=== PATIENT | male | born 1995 | race Caucasian/White ===

== ENCOUNTER 2017-03-19 20:05 | Emergency (ER) | payer OTHER ==
[2017-03-19 20:11] VITALS: BP 144/93; PULSE 76; RESP 20; TEMP 98.8; O2SAT 95
[2017-03-19] MEDS ORDERED: IBUPROFEN 800 MG TAB PO ONE (20:45)
--- NOTE | 2017-03-19 20:49 | EDPHY ---
H & P Stated Complaint: left ankle injury Time Seen by Provider: 03/19/17 20:46 HPI/ROS: HPI: This is a 21-year-old male presents with Chief Complaint: Left ankle injury Location: Left lateral ankle Quality: Injury Duration: 3-5 hours Signs and Symptoms: No bleeding, no radiation, no numbness, no weakness, no tingling, no incontinence, no decreased range of motion, + swelling, + pain Timing: Acute Severity: Moderate Context: Patient reports that he was wearing shoes and walking on the edge of a curb when he accidentally slipped and X reverted his left ankle. He felt immediate pain and felt a popping sensation. He was unable to bear weight secondary to the pain. He has not tried any [id number] medications nor has he applied ice. He denies paresthesias, skin color. Does report mild-to- moderate swelling. Has not had no prior injuries to the ankle before. He reports that the injury was accidental in nature because he tripped and lost his balance. Modifying Factors: None Comment: ROS: see HPI Constitutional: No fever, no chills, no weight loss Eyes: No blurred vision Respiratory: No shortness of breath, no cough Cardiovascular: No chest pain Gastrointestinal: No nausea, no vomiting no diarrhea Genitourinary: No dysuria Extremities: No myalgias Neurologic: No weakness, no numbness Skin: No rashes Hematologic: No bruising, no bleeding MEDICAL/SURGICAL/SOCIAL HISTORY: Medical history: Generally healthy. Does not take any regular medications. Surgical history: Denies Social history: Local college student CONSTITUTIONAL: Young adult white male, polite cooperative, awake and alert, no obvious distress HEENT: Atraumatic and normocephalic, PERRL, EOMI. Tympanic membranes clear. Oropharynx clear, no exudate and moist pink mucosa. Airway patent. No lymphadenopathy. No meningismus. Cardiovascular: Normal S1/S2, regular rate, regular rhythm, without murmur rub or gallop. PULMONARY/CHEST: Symmetrical and nontender. Clear to auscultation bilaterally. Good air movement. No accessory muscle usage. ABDOMEN: Soft, nondistended, nontender, no rebound, no guarding, no peritoneal signs, no masses or organomegaly. No CVAT. EXTREMITIES: 2/2 DP and PT pulses, strength 5/5, LEFT Ankle; Plantar flexion to 50, dorsiflexion to 20. Foot inversion to 35 degree. Mild tenderness Anterior talofibular ligament. Mild tenderness Calcaneofibular ligament, no tenderness posterior talofibular ligament, no tenderness posterior inferior tibiofibular ligament Achilles tendon intact. no deformities, no clubbing, no cyanosis or edema. NEUROLOGICAL: no focal neuro deficits. GCS 15. SKIN: Warm and dry, no erythema. no rash. Good capillary refill. Source: Patient Exam Limitations: No limitations - Personal History Current Tetanus Diphtheria and Acellular Pertussis (TDAP): Yes - Medical/Surgical History Hx Asthma: No Hx Chronic Respiratory Disease: No Hx Diabetes: No Hx Cardiac Disease: No Hx Renal Disease: No Hx Cirrhosis: No Hx Alcoholism: No Hx HIV/AIDS: No Hx Splenectomy or Spleen Trauma: No - Social History Smoking Status: Never smoked Constitutional: Initial Vital Signs Temperature (C) 37.1 C 03/19/17 20:09 Heart Rate 76 03/19/17 20:09 Respiratory Rate 20 03/19/17 20:09 Blood Pressure 144/93 H 03/19/17 20:09 O2 Sat (%) 95 03/19/17 20:09 O2 Delivery Mode Room Air Allergies/Adverse Reactions: peanut Allergy (Verified 03/19/17 20:09) Medical Decision Making - Diagnostics Imaging Results: Imaging Impressions Ankle X-Ray 03/19/17 20:24 Impression: There is no acute osseous abnormality. Procedures: Procedure: Splint placement. A left ankle stirrup splint was applied by the Emergency Room mechanical manufacturing technician. After application of the splint I returned and re-examined the patient. The splint was adequately immobilizing the joint and distal to the splint the patient's circulation and sensation was intact. ED Course/Re-evaluation: Ankle x-ray and oral medications ordered Ice pack applied and given ibuprofen 800 mg. No signs of neurovascular compromise/tenting of skin/compartment syndrome/ extremities and joints examined above and below area of concern and are neurovascularly intact. X-ray reviewed my read shows mild soft tissue swelling over the lateral malleolus. Placed in ankle stirrup splint and given crutches. Weightbearing as tolerated. Rice therapy and Ortho follow-up if symptoms persist. This patient was seen under the supervision of my primary supervising physician. I evaluated care for this patient independently. Discussed this patient with Dr. Bermudez who did not see the patient. Differential Diagnosis: Differential diagnosis includes but is not limited to fibular fracture, midfoot fracture, ligament injury, nerve injury, sprain. - Data Points Medications Given: Discontinued Medications Ibuprofen (Motrin) 800 mg PO EDNOW ONE Stop: 03/19/17 20:46 Last Admin: 03/19/17 20:55 Dose: 800 mg Departure - Departure Disposition: Home, Routine, Self-Care Clinical Impression: Grade 2 ankle sprain Qualifiers: Encounter type: initial encounter Laterality: left Qualified Code(s): S93.402A - Sprain of unspecified ligament of left ankle, initial encounter Condition: Good Instructions: Ankle Sprain (ED), Ankle Stirrup Splint (ED) Additional Instructions: Wear ankle splint while out of bed until pain free. Use crutches to aid ambulation; start with non weight bearing and slowly advance as tolerated. Take Tylenol 650 mg every 4 hours and/or Ibuprofen 600 mg every 8 hours with food as needed for pain. Apply ice for 30 minutes at a time; 2-3 times per day for the next 1-2 days. Follow up with Orthopedics in 7-10 days if symptoms persist or worsen at which time they will evaluate and recommend with you if conservative management versus further diagnostic imaging is indicated. The x-rays obtained in the emergency department today demonstrate no evidence of an obvious fracture. Sometimes fractures are not obvious on the initial set of x-rays performed in the ED. For this reason, you should have repeat x-rays performed in 7-10 days if you are having any pain exclude the possibility of an occult fracture. Referrals: Micky Hancock MD [Medical Doctor] - As per Instructions
== END 2017-03-19 21:03 | disposition home or self-care (01) ==
DX: S93.402A Sprain of unspecified ligament of left ankle, initial encounter (principal); Z91.010 Allergy to peanuts; W18.49XA Other slipping, tripping and stumbling without falling, initial encounter; Y99.8 Other external cause status; Y93.89 Activity, other specified
CPT/HCPCS: L4350